=== PATIENT | male | born 1955 | race Caucasian/White ===

== ENCOUNTER 2018-06-07 11:32 | Observation (INO) | payer OTHER ==
[~2018-06-07] VITALS: Ht 170.2 cm; Wt 69.9 kg
[2018-06-07 11:39] VITALS: BP 115/59
--- NOTE | 2018-06-07 11:39 | NUR ---
Patient to bed 10. RN evaluating patient at bedside.
--- NOTE | 2018-06-07 11:50 | NUR ---
PT. BIB FAMILY MEMBER DUE TO SYNCOPE YESTERDAY WHILE IN RESTROOM. PT. STATES " I SAT DOWN IN THE TOILET AND IGOT DIZZY AND PASSED OUT , I TOOK MY BLOOD PRESSURE MEDICATION AND FELT DIZZY AND TIRED WITH ESQUIVEL". PT. C/O WATERY DIARRHEA X 2 DAYS, DECREASED APPETITE BUT DENIES ANY N/V. DENIES ANY BLOOD IN STOOL. PT. DENIES ANY ABD PAIN AT THIS TIME. full clear speech, ambulatory with steady gait, no facial asymmetry noted, equal hand gripsER MADE AWARE. SAFETY PRECAUTIONS IMPLEMENTED. WILL CONTINUE TO MONITOR. FAMILY MEMEBER AT BEDSIDE.
[2018-06-07] MEDS ORDERED: NACL 0.9% 1,000 ML IV ONE ×2 (13:12→15:55)
[2018-06-07] MEDS ORDERED: NACL 0.9% 1,000 ML IV SCH (13:12)
[2018-06-07] MEDS ORDERED: ONDANSETRON 4 MG/2 ML VIAL IVP ONE (13:15)
--- NOTE | 2018-06-07 13:31 | NUR ---
BLOOD SPECIMEN COLLECTED AND GIVEN TO OTNO ARIAS
[2018-06-07 13:35] LABS: BASOPHILS # (AUTO) 0.1 K/uL (0.00-0.22); BASOPHILS % (AUTO) 0.8 % (0.0-2.0); EOSINOPHILS % (AUTO) 0.1 % (0.0-4.0); HEMATOCRIT 43.9 % (36-52); HEMOGLOBIN 14.5 g/dL (12.0-18.0); LYMPHOCYTES # (AUTO) 1.3 K/uL (2.0-11.5); MEAN CORPUSCULAR HEMOGLOBIN 29 pg (27-31); MEAN CORPUSCULAR HGB CONC 33 g/dL (33-37); MEAN CORPUSCULAR VOLUME 87.9 fL (80-94); MONOCYTES # (AUTO) 0.7 K/uL (0.8-1.0); MONOCYTES % (AUTO) 8.4 % (1.7-9.3); NEUTROPHILS # (AUTO) 6.4 K/uL (1.8-7.7); NEUTROPHILS % (AUTO) 75.7 % (42.2-75.2); PLATELET COUNT (AUTO) 139 K/uL (140-450); RED CELL DISTRIBUTION WIDTH 13.2 % (11.6-13.7); WHITE BLOOD COUNT (AUTO) 8.4 K/uL (4.8-10.8)
--- NOTE | 2018-06-07 13:44 | NUR ---
Patient returned from CT scan. RN re-evaluating patient at bedside.
[2018-06-07 14:03] LABS: ALBUMIN 3.5 g/dL (3.4-5.0); ANION GAP 11.1 (8-16); CARBON DIOXIDE 30.8 mmol/L (21-32); POTASSIUM 3.9 mmol/L (3.5-5.1); PROTHROMBIN TIME 10.7 secs (10.8-13.4); TOTAL BILIRUBIN 0.5 mg/dL (0.0-1.0)
--- NOTE | 2018-06-07 14:52 | NUR ---
PT. RESTING COMFORTABLY IN BED, RR EVEN AND UNLABORED. VSS. WILL CONTINUE TO MONITOR.
[2018-06-07 15:11] LABS: MAGNESIUM 1.4 mg/dL (1.8-2.4)
[2018-06-07 15:26] LABS: ACETONE, SERUM NEGATIVE (NEGATIVE)
[2018-06-07 15:34] LABS: APPEARANCE,URINE CLEAR (CLEAR); BILIRUBIN,URINE NEGATIVE (NEGATIVE); BLOOD, URINE NEGATIVE (NEGATIVE); COLOR,URINE YELLOW (YELLOW); LEUKOCYTE ESTERASE ,URINE NEGATIVE (NEGATIVE); NITRITE, URINE NEGATIVE (NEGATIVE); UGLUCOSE NEGATIVE (NEGATIVE)
[2018-06-07] MEDS ORDERED: LOPERAMIDE 2 MG CAP PO ONE (15:55)
--- NOTE | 2018-06-07 16:00 | NUR ---
PT. RESTING COMFORTABLY IN BED, VSS. HOB ELEVATED . DAUGHTER AT BEDSIDE. WILL CONTINUE TO MONITOR.
--- NOTE | 2018-06-07 16:24 | NUR ---
both throat and nasal swabs collected.
[2018-06-07] MEDS ORDERED: ASPI-1718 PO (16:43)
[2018-06-07] MEDS ORDERED: LOSA50TA66 PO (16:43)
--- NOTE | 2018-06-07 17:00 | NUR ---
PT. PROVIDED WITH A SANDWICH AND TRAY . TOLERATING WELL
[2018-06-07] MEDS ORDERED: HYDROcodone/APAP 5/325 MG 1 TAB TAB PO PRN (17:05)
[2018-06-07] MEDS ORDERED: ONDANSETRON 4 MG/2 ML VIAL IVP PRN (17:05)
[2018-06-07] MEDS ORDERED: ACETAMINOPHEN 325 MG TAB PO PRN (17:05)
--- NOTE | 2018-06-07 17:42 | NUR ---
Patient will be admitted to care of DR. MARCOS . Admited to TELE . Will go to room 110B. Belongings list completed. Report to LUCI JOSÉ .
--- NOTE | 2018-06-07 17:59 | NUR ---
ADMITTED PT FROM ER BY SPRING, PT AWAKE, ALERT, ABLE TO FOLLOW COMMANDS. ON ROOM AIR, NO S/S OF RESPIRATORY DISTRESS NOTED. PT HAS IV TO LEFT AC # 20 RUNNING THE SECOND BAG OF BOLUS OF LV FLUID. SKIN INTACT, PT AMBULATE FROM HALLWAY TO BED WITHOUT DIFFICULTY. INTRODUCED MYSELF TO PT, POC EXPLAINED TO PT, PT'S SON AT BEDSIDE, PT VERBALIZED UNDERSTANDING, CALL LIGHT IN REACH, WILL CONTINUE TO MONITOR.
[2018-06-07 18:00] VITALS: BP 117/70
[2018-06-07] MEDS: NACL 0.9% 1,000 ML IV SCH (18:42)
--- NOTE | 2018-06-07 18:42 | NUR ---
IVF STARTED AND INFUSING WELL.
--- NOTE | 2018-06-07 18:55 | NUR ---
PT SITTING IN BED, TALKING TO FAMILY. PT DENIES PAIN , DIZZINESS OR DISCOMFORT AT THIS TIME.
--- NOTE | 2018-06-07 19:34 | NUR ---
RECEIVED REPORT FROM ARNAV VERMA DAYSHIFT NURSE AT BEDSIDE FOR CONTINUITY OF CARE, PT IN STABLE CONDITION.
--- NOTE | 2018-06-07 20:00 | NUR ---
PT IN BED AOX4 WITH AT HIS SIDE. PT SKIN INTACT AND HE HAS A 20G LAC RUNNING NS AT 100. IV SITE INTACT WITH NO S/S OF INFILTRATION NOTED. PT ABLE TO AMBULATE INDEPENDENTLY AND HE HAS NO FURTHER C/O OF DIARRHEA OR DIZZINESS. V/S FOLLOWS T 98.1 P 66 R 18 B/P 126/69 02 97% WITH R/A.
--- NOTE | 2018-06-07 21:00 | NUR ---
V/S FOLLOWS: T 99.0 P 69 R18 B/P 104/56 02 96% ON ROOM AIR.
--- NOTE | 2018-06-07 21:30 | NUR ---
PT REQUEST TO USE TOILET AND WAS ABLE TO AMBULATE INDEPENDENTLY AND STEADILY. PT DENIES ANY DIZZINESS WITH POSITION CHANGE AND ALSO DENIES ANY MORE DIARRHEA. PT RETUNED TO BED AND SAID THAT HE WAS TIRED AND WANTED TO SLEEP. CALL MCCLAIN IN REACH AND ALL REQUESTED NEEDS PROVIDED BY STAFF.
--- NOTE | 2018-06-07 23:45 | NUR ---
PT IN BED V/S FOLLOWS T 98.8 P 74 R18 B/P 104/57 02 96% ON R/A. PT DENIES PAIN, HE HAS NO C/O OF LOOSE STOOL OR DIZZINESS. CALL MCCLAIN IN REACH AND SIDE RAILS UP X2.
[2018-06-08] VITALS: BP 104/57
--- NOTE | 2018-06-08 00:30 | NUR ---
RECEIVED REPORT FROM LUCI MELENDRZE FOR CONTINUITY OF CARE. PT IS A/OX4 ON ROOM AIR. PT IS ABLE TO MAKE NEEDS KNOWN, ABLE TO FOLLOW COMMANDS. PT AMBULATES WITH STEADY GAIT, AND SKIN IS INTACT. FALL RISK PROTOCOL IN PLACE DUE TO SYNCOPE DIAGNOSIS. PT HAS A 20G IV TO LEFT AC, ASYMPTOMATIC AND INTACT. DISCUSSED PLAN OF CARE WITH PT. VITAL SIGNS WITHIN NORMAL LIMITS. PT STABLE, DENIES PAIN, NO SIGNS OF DISTRESS NOTED AT THIS TIME. PT POSITIONED FOR COMFORT. BED IN LOWEST POSITION, BED ALARM ON. CALL LIGHT WITHIN REACH, WILL CONTINUE TO MONITOR.
--- NOTE | 2018-06-08 02:15 | NUR ---
NO SIGNS OF DISTRESS NOTED AT THIS TIME. PT POSITIONED FOR COMFORT. BED IN LOWEST POSITION, BED ALARM ON. CALL LIGHT WITHIN REACH, WILL CONTINUE TO MONITOR.
[2018-06-08 04:00] VITALS: BP 92/54
--- NOTE | 2018-06-08 04:00 | NUR ---
VITAL SIGNS WITHIN NORMAL LIMITS. PT STABLE, DENIES PAIN, NO SIGNS OF DISTRESS NOTED AT THIS TIME. PT POSITIONED FOR COMFORT. BED IN LOWEST POSITION, BED ALARM ON. CALL LIGHT WITHIN REACH, WILL CONTINUE TO MONITOR.
[2018-06-08] MEDS: NACL 0.9% 1,000 ML IV SCH ×2 (05:30→14:20)
--- NOTE | 2018-06-08 05:36 | NUR ---
HANGED NEW IVF AND INFUSING WELL.
--- NOTE | 2018-06-08 06:15 | NUR ---
CHANGED HEART MONITOR LEADS TO PT'S BACK SHOULDERS BECAUSE CONTACT WAS NOT VERY GOOD ON CHEST. PT HAS A LOT OF CHEST HAIR.
--- NOTE | 2018-06-08 07:44 | NUR ---
ENDORSED PT TO PROCUREMENT OFFICER MARY FOR CONTINUITY OF CARE. PT IN STABLE CONDITION.
[2018-06-08 07:54] LABS: BASOPHILS # (AUTO) 0.1 K/uL (0.00-0.22); BASOPHILS % (AUTO) 1.1 % (0.0-2.0); EOSINOPHILS % (AUTO) 0.5 % (0.0-4.0); HEMATOCRIT 40.6 % (36-52); HEMOGLOBIN 13.7 g/dL (12.0-18.0); LYMPHOCYTES # (AUTO) 1.4 K/uL (2.0-11.5); LYMPHOCYTES % (AUTO) 22.2 % (20.5-51.1); MEAN CORPUSCULAR HEMOGLOBIN 30 pg (27-31); MEAN CORPUSCULAR HGB CONC 34 g/dL (33-37); MEAN CORPUSCULAR VOLUME 88.4 fL (80-94); MONOCYTES # (AUTO) 0.8 K/uL (0.8-1.0); MONOCYTES % (AUTO) 11.8 % (1.7-9.3); NEUTROPHILS # (AUTO) 4.1 K/uL (1.8-7.7); NEUTROPHILS % (AUTO) 64.4 % (42.2-75.2); PLATELET COUNT (AUTO) 124 K/uL (140-450); RED BLOOD CELL COUNT(AUTO) 4.59 MIL/uL (4.20-6.10); RED CELL DISTRIBUTION WIDTH 13.2 % (11.6-13.7); WHITE BLOOD COUNT (AUTO) 6.4 K/uL (4.8-10.8)
[2018-06-08 08:16] LABS: MAGNESIUM 1.7 mg/dL (1.8-2.4); PHOSPHORUS 2.8 mg/dL (2.5-4.9)
[2018-06-08] MEDS ORDERED: ASPIRIN 81 MG TAB.CHEW PO SCH (09:00)
[2018-06-08] MEDS ORDERED: ENOXAPARIN 40 MG/0.4 ML SYR SUBQ SCH (09:00)
--- NOTE | 2018-06-08 09:20 | NUR ---
PATIENT HAS BEEN SCREENED AND CATEGORIZED MODERATE NUTRITION RISK. PATIENT WILL BE SEEN WITHIN 3-5 DAYS OF ADMISSION. 06/10/1809/[address]
[2018-06-08] MEDS: LOSARTAN 50 MG TAB PO SCH ×2 (09:32→09:36)
--- NOTE | 2018-06-08 09:38 | NUR ---
AM MEDS GIVEN, PT DANNI WELL, PT REFUSED BANDAR, PT STATES " MY BLOOD PRESSURE IS NORMAL, IT'S TOO LOW TO TAKE BLOOD PRESSURE MEDS NOW", LAMAR ALCANTAR, REPORTED TO PRIMARY NURSE MARY.
[2018-06-08 10:13] LABS: ANION GAP 12.4 (8-16); CARBON DIOXIDE 28.6 mmol/L (21-32); CREATININE 0.9 mg/dL (0.7-1.3)
--- NOTE | 2018-06-08 10:25 | NUR ---
RECEIVED REPORT FROM CHARGE NURSE MARY. PT RESTING IN BED. A/O X4. ABLE TO MAKE NEEDS KNOWN. SKIN DRY AND WARM TO TOUCH. IN ROOM AIR WITH NORMAL BREATHING PATTERN. LUNGS CLEAR. S21S2 HEARD. LEFT AC 20 G. INTACT LINE. NS RUNNING AT 100 ML/HR. ABDOMEN SOFT, ROUND AND NON-TENDER. ACTIVE BOWEL SOUND. DENIES ABDOMINAL DISCOMFORT, DENIES NAUSEA, VOMITING AND DIARRHEA. PT MADE AWARE TO COLLECT STOOL SAMPLE FOR THE TEST. DENIES ANY PAIN AT THIS TIME. SKIN INTACT. AMBULATORY. KEPT HOB ELEVATED, BED IN LOW POSITION LOCKED. WILL CONTINUE TO MONITOR.
[2018-06-08 10:30] VITALS: BP 115/74
--- NOTE | 2018-06-08 10:45 | NUR ---
SEEN BY DR. MARCOS. UPDATED PT CONDITION. MADE AWARE ABOUT MG 1.7. WILL FOLLOW UP ON ORDER.
[2018-06-08] MEDS ORDERED: MAG SULF 2000 MG/WATER PREMIX 50 ML IV SCH (11:14)
--- NOTE | 2018-06-08 11:49 | NUR ---
MAG RIDER STARTED AND INFUSING WELL.
--- NOTE | 2018-06-08 13:10 | NUR ---
ECHO AT BEDSIDE.
--- NOTE | 2018-06-08 14:33 | NUR ---
RECEIVED MESSAGE FROM DR. LA. PT IS OKAY TO BE DISCHARGE IF ECHOCARDIOGRAM RESULT CAME NORMAL.
--- NOTE | 2018-06-08 15:01 | NUR ---
DENIES ANY PAIN OR DIZZINESS. DENIES ABDOMINAL DISCOMFORT OR DIARRHEA. NO CHANGE IN LOC. NS RUNNING AT 100 ML/HR. AT BEDSIDE.
--- NOTE | 2018-06-08 15:16 | NUR ---
CALLED DR. LA TO FOLLOW UP ECHO RESULT AND PLAN OF CARE. ECHO RESULT IS NORMAL ACCORDING TO DR. LA. PT CAN BE DISCHARGED PER DOCTOR. PT AND FAMILY MADE AWARE.
[2018-06-08 15:31] VITALS: BP 111/72
[2018-06-08 15:34] VITALS: BP 111/72
--- NOTE | 2018-06-08 16:20 | NUR ---
MAG RIDER FINISHED.
--- NOTE | 2018-06-08 16:22 | NUR ---
#2 BAG OF MAG RIDER STARTED AND INFUSING WELL.
--- NOTE | 2018-06-08 16:23 | NUR ---
Patient discharged with v/s stable. Written and verbal after care instructions given and explained. Patient alert, oriented and verbalized understanding of instructions. Ambulatory with steady gait. All questions addressed prior to discharge. ID band removed. Patient advised to follow up with PCP within 1-2 week. Advised to continue antihypertensive med and aspirin. Verbalized understanding. Patient educated on indication of medication including possible reaction and side effects. Opportunity to ask questions provided and answered.
--- NOTE | 2018-06-11 14:17 | NUR ---
Called Dr. Pace's clinic this morning and now. Clinic still close. Will call the clinic tomorrow.
--- NOTE | 2018-06-12 09:15 | NUR ---
RECEIVED A CALL FROM STEFANO FROM DR. GILMORE'S OFFICE STATING SHE HAD A CALL ABOUT MAKING A FOLLOW UP APPOINTMENT FROM MISSY. I CALLED THE OFFICE, [phone] AND SPOKE WITH STEFANO. THE PATIENT WAS ALREADY IN THE DOCTOR'S OFFICE TODAY, HAD AN APPOINTMENT AT 8:30P.M..
== END 2018-06-08 16:20 | disposition home or self-care (01) ==
LOC: MED 11:32 → MTU 17:04
PROVIDERS: ADMIT Internal Medicine Pulmonary Disease; ATTEND Internal Medicine Pulmonary Disease
DX: R55 Syncope and collapse (principal); E86.9 Volume depletion, unspecified; I10 Essential (primary) hypertension; R19.7 Diarrhea, unspecified; Z87.891 Personal history of nicotine dependence
CPT/HCPCS: 36415; 70450; 71045; 80048; 80053; 81003; 82009; 82150; 83690; 83735; 84100; 84484; 85025; 85610; 85730; 87081; 93005; 93307; 96361; 96365; 96366; 96372; 96375; 99285; G0378; J1650; J2405; J3475; J7030; Q0092; 96374

== ENCOUNTER 2022-05-11 09:28 | Emergency (ER) | payer OTHER ==
[~2022-05-11] VITALS: Ht 167.6 cm; Wt 73.5 kg
[~2022-05-11 09:28] MED LIST: ASPI-1822 PO; LOSA50TA66 PO
[2022-05-11 09:35] VITALS: BP 144/87
--- NOTE | 2022-05-11 10:08 | NUR ---
66 Y/O MALE BIB SELF C/O DOG BITE ON THE LEFT INNER KNEEXYESTERDAY, NO OPEN WOUND NOTED. UNKNOWN LAST TDAP. PER PT HE WAS SPEAKING TO A CUSTOMER WHEN THEIR DOG SUDDENLY JUMPED UP AND NIPPED THEM IN THE INNER KNEE. NKA PMH: HTN
[2022-05-11] MEDS ORDERED: AMOX-999 PO ×2 (11:22→12:03)
[2022-05-11] MEDS ORDERED: IBUP-2213 PO ×2 (11:22→12:03)
== END 2022-05-11 11:30 | disposition home or self-care (01) ==
LOC: MED 09:28
DX: S81.852A Open bite, left lower leg, initial encounter (principal); I10 Essential (primary) hypertension; Z79.899 Other long term (current) drug therapy; W54.0XXA Bitten by dog, initial encounter; Y93.89 Activity, other specified; Y92.89 Other specified places as the place of occurrence of the external cause; Y99.8 Other external cause status
CPT/HCPCS: 90471; 90715; 99283

== ENCOUNTER 2023-05-27 18:42 | Inpatient (IN) | payer OTHER, MEDICARE ==
[~2023-05-27] VITALS: Ht 165.1 cm; Wt 72.6 kg
[~2023-05-27 18:42] MED LIST changes: +AMOX-999 PO; +IBUP-2213 PO
[2023-05-27 18:52] VITALS: BP 99/56; PULSE 69; RESP 18; TEMP 99.1; O2SAT 95
[2023-05-27] MEDS ORDERED: NACL 0.9% 1,000 ML IV SCH (19:40)
[2023-05-27 20:11] VITALS: O2SAT 96
[2023-05-27 20:21] LABS: BASOPHILS # (AUTO) 0.1 K/uL (0.00-0.22); BASOPHILS % (AUTO) 0.9 % (0.0-2.0); EOSINOPHILS % (AUTO) 0.3 % (0.0-4.0); HEMATOCRIT 39.9 % (36-52); HEMOGLOBIN 13.7 g/dL (12.0-18.0); LYMPHOCYTES # (AUTO) 0.5 K/uL (2.0-11.5); LYMPHOCYTES % (AUTO) 8.2 % (20.5-51.1); MEAN CORPUSCULAR HEMOGLOBIN 30 pg (27-31); MEAN CORPUSCULAR HGB CONC 34 g/dL (33-37); MEAN CORPUSCULAR VOLUME 88.5 fL (80-94); MONOCYTES # (AUTO) 0.7 K/uL (0.8-1.0); MONOCYTES % (AUTO) 11.6 % (1.7-9.3); NEUTROPHILS # (AUTO) 5.1 K/uL (1.8-7.7); PLATELET COUNT (AUTO) 145 K/uL (140-450); RED BLOOD CELL COUNT(AUTO) 4.51 MIL/uL (4.20-6.10); RED CELL DISTRIBUTION WIDTH 13.7 % (11.6-13.7); WHITE BLOOD COUNT (AUTO) 6.4 K/uL (4.8-10.8)
[2023-05-27 20:34] LABS: ANION GAP 12.3 (8-16); CALCIUM 9.1 mg/dL (8.5-10.1); CARBON DIOXIDE 28.9 mmol/L (21-32); CREATININE 1.3 mg/dL (0.6-1.3); POTASSIUM 3.2 mmol/L (3.5-5.1)
[2023-05-27 20:45] LABS: ALANINE AMINOTRANSFERASE 21 U/L (12-78); ALBUMIN 3.6 g/dL (3.4-5.0); ALKALINE PHOSPHATASE 66 U/L (50-136); ASPARTATE AMINOTRANSFERASE 19 U/L (15-37); BILIRUBIN,DIRECT 0.1 mg/dL (0.0-0.3); CREATINE KINASE, TOTAL 116 U/L (39-308); TOTAL BILIRUBIN 0.5 mg/dL (0.0-1.0); TOTAL PROTEIN, SERUM 6.9 g/dL (6.4-8.2)
[2023-05-27 21:20] LABS: FLU A ANTIGEN negative (NEGATIVE); FLU B ANTIGEN NEGATIVE (NEGATIVE)
[2023-05-27] MEDS ORDERED: POTASSIUM CHLORIDE 20% 40 MEQ/15 ML UDC PO ONE (21:40)
[2023-05-27] MEDS ORDERED: POTASSIUM CHLORIDE 10 MEQ TABER PO PRN (21:55)
[2023-05-27] MEDS ORDERED: KCL 20 MEQ IN 100 mL PREMIX 200 ML IV PRN (21:55)
[2023-05-27] MEDS ORDERED: MORPHINE SULFATE 4 MG/ML SYR IVP PRN (21:55)
[2023-05-27] MEDS ORDERED: LORazepam 1 MG TAB PO PRN (21:55)
[2023-05-27] MEDS ORDERED: ACETAMINOPHEN 325 MG TAB PO PRN (21:55)
[2023-05-27] MEDS: NACL 0.9% 1,000 ML IV SCH (21:55)
[2023-05-27] MEDS ORDERED: HYDROcodone/APAP 5/325 MG 1 TAB TAB PO PRN (21:55)
[2023-05-27] MEDS ORDERED: ZOLPIDEM 5 MG TAB PO PRN (21:55)
[2023-05-27] MEDS ORDERED: MAG SULF 2000 MG/WATER PREMIX 50 ML IV PRN (21:55)
[2023-05-27] MEDS ORDERED: ONDANSETRON 4 MG/2 ML VIAL IVP PRN (21:55)
[2023-05-27 22:33] LABS: APPEARANCE,URINE CLEAR (CLEAR); BILIRUBIN,URINE NEGATIVE (NEGATIVE); BLOOD, URINE NEGATIVE (NEGATIVE); COLOR,URINE YELLOW (YELLOW); LEUKOCYTE ESTERASE ,URINE NEGATIVE (NEGATIVE); NITRITE, URINE NEGATIVE (NEGATIVE); PROTEIN,URINE NEGATIVE (NEGATIVE); UGLUCOSE NEGATIVE (NEGATIVE); UROBILINOGEN,URINE 0.2 EU/dL (0.2 - 1)
[2023-05-27] MEDS ORDERED: ASPI-1822 PO (23:05)
[2023-05-27] MEDS ORDERED: LOSA-272 PO (23:05)
[2023-05-27] MEDS ORDERED: ATOR10TA PO (23:05)
[2023-05-27] MEDS ORDERED: METO50TE2 PO (23:05)
[2023-05-27 23:21] VITALS: PULSE 69; RESP 18; O2SAT 96
[2023-05-28] VITALS (8 sets, daily range): BP systolic 100–110; BP diastolic 46–62; PULSE 60–78; RESP 18; TEMP 97.1–100.2; O2SAT 94–98
[2023-05-28 05:52] LABS: BASOPHILS # (AUTO) 0.1 K/uL (0.00-0.22); BASOPHILS % (AUTO) 1.1 % (0.0-2.0); EOSINOPHILS % (AUTO) 0.9 % (0.0-4.0); HEMATOCRIT 38.8 % (36-52); HEMOGLOBIN 13.2 g/dL (12.0-18.0); LYMPHOCYTES # (AUTO) 1.2 K/uL (2.0-11.5); LYMPHOCYTES % (AUTO) 24.1 % (20.5-51.1); MEAN CORPUSCULAR HEMOGLOBIN 30 pg (27-31); MEAN CORPUSCULAR HGB CONC 34 g/dL (33-37); MEAN CORPUSCULAR VOLUME 88.6 fL (80-94); MONOCYTES # (AUTO) 0.6 K/uL (0.8-1.0); MONOCYTES % (AUTO) 12.5 % (1.7-9.3); NEUTROPHILS # (AUTO) 3.2 K/uL (1.8-7.7); NEUTROPHILS % (AUTO) 61.4 % (42.2-75.2); PLATELET COUNT (AUTO) 138 K/uL (140-450); RED BLOOD CELL COUNT(AUTO) 4.37 MIL/uL (4.20-6.10); RED CELL DISTRIBUTION WIDTH 13.2 % (11.6-13.7); WHITE BLOOD COUNT (AUTO) 5.1 K/uL (4.8-10.8)
[2023-05-28 06:27] LABS: CALCIUM 8.8 mg/dL (8.5-10.1); CARBON DIOXIDE 27.6 mmol/L (21-32); CREATININE 1.1 mg/dL (0.6-1.3); POTASSIUM 3.6 mmol/L (3.5-5.1)
[2023-05-28] MEDS: DOCUSATE SODIUM 100 MG GELCAP PO SCH (09:05)
[2023-05-28] MEDS ORDERED: MAG SULF 2000 MG/WATER PREMIX 50 ML IV ONE (10:15)
[2023-05-28] MEDS: NACL 0.9% 1,000 ML IV SCH ×2 (10:24→22:36)
[2023-05-29] VITALS (8 sets, daily range): BP systolic 111–141; BP diastolic 65–68; PULSE 60–81; RESP 18; TEMP 97.5–98.6; O2SAT 94–98
[2023-05-29] MEDS: NACL 0.9% 1,000 ML IV SCH (01:49)
[2023-05-29 06:12] LABS: BASOPHILS # (AUTO) 0.1 K/uL (0.00-0.22); BASOPHILS % (AUTO) 1.3 % (0.0-2.0); HEMOGLOBIN 13.9 g/dL (12.0-18.0); LYMPHOCYTES # (AUTO) 1.3 K/uL (2.0-11.5); LYMPHOCYTES % (AUTO) 27.6 % (20.5-51.1); MEAN CORPUSCULAR HEMOGLOBIN 31 pg (27-31); MEAN CORPUSCULAR HGB CONC 35 g/dL (33-37); MEAN CORPUSCULAR VOLUME 88.3 fL (80-94); MONOCYTES # (AUTO) 0.5 K/uL (0.8-1.0); MONOCYTES % (AUTO) 11.4 % (1.7-9.3); NEUTROPHILS # (AUTO) 2.8 K/uL (1.8-7.7); NEUTROPHILS % (AUTO) 58.7 % (42.2-75.2); PLATELET COUNT (AUTO) 120 K/uL (140-450); RED BLOOD CELL COUNT(AUTO) 4.53 MIL/uL (4.20-6.10); RED CELL DISTRIBUTION WIDTH 13.1 % (11.6-13.7); WHITE BLOOD COUNT (AUTO) 4.7 K/uL (4.8-10.8)
[2023-05-29 06:27] LABS: ANION GAP 11.4 (8-16); CALCIUM 8.7 mg/dL (8.5-10.1); CARBON DIOXIDE 29.1 mmol/L (21-32); CREATININE 0.9 mg/dL (0.6-1.3); POTASSIUM 3.5 mmol/L (3.5-5.1)
[2023-05-29] MEDS: DOCUSATE SODIUM 100 MG GELCAP PO SCH (08:54)
[2023-05-29] MEDS ORDERED: MAG SULF 2000 MG/WATER PREMIX 50 ML IV SCH (10:48)
[2023-05-29] MEDS ORDERED: AZIT250T11 PO (11:44)
== END 2023-05-29 13:45 | disposition home or self-care (01) | DRG 204 ==
LOC: MED 18:42 → MTU 21:55 → INTOOBSV 21:55 → OBSVTOIN 21:58 → MTU 23:05
PROVIDERS: ADMIT Student in an Organized Health Care Education/Training Program; ATTEND Student in an Organized Health Care Education/Training Program
DX: I95.1 Orthostatic hypotension (principal); N17.0 Acute kidney failure with tubular necrosis; E66.9 Obesity, unspecified; E83.42 Hypomagnesemia; E86.1 Hypovolemia; E86.0 Dehydration; Z20.822 Contact with and (suspected) exposure to COVID-19; E87.6 Hypokalemia; I10 Essential (primary) hypertension; E78.5 Hyperlipidemia, unspecified; Z79.1 Long term (current) use of non-steroidal anti-inflammatories (NSAID); Z79.899 Other long term (current) drug therapy; Z68.26 Body mass index [BMI] 26.0-26.9, adult
CPT/HCPCS: 36415; 71045; 80048; 80076; 81003; 82550; 83605; 83735; 83880; 84484; 85025; 87040; 87081; 87086; 93005; 96360; 99285; J1644; J3475; Q0092

== ENCOUNTER 2024-02-19 10:50 | Emergency (ER) | payer BC, OTHER ==
[~2024-02-19] VITALS: Ht 167.6 cm; Wt 68.0 kg
[~2024-02-19 10:50] MED LIST changes: -AMOX-999 PO; +ATOR10TA PO; +AZIT250T11 PO; +METO50TE2 PO
[2024-02-19 11:13] VITALS: BP 122/72; PULSE 59; RESP 16; TEMP 98.1; O2SAT 99
[2024-02-19] MEDS ORDERED: [UNRECOGNIZED DRUG - CODE] TP ×2 (11:36→17:19)
[2024-02-19] MEDS: HYDROcodone/APAP 10/325 MG 1 TAB TAB PO PRN (12:05)
== END 2024-02-19 12:05 | disposition home or self-care (01) ==
LOC: MED 10:50
DX: M62.830 Muscle spasm of back (principal); I10 Essential (primary) hypertension; Z79.1 Long term (current) use of non-steroidal anti-inflammatories (NSAID); Z79.2 Long term (current) use of antibiotics; Z79.899 Other long term (current) drug therapy; Z98.890 Other specified postprocedural states
CPT/HCPCS: 99283